=== PATIENT | female | born 1950 | race Caucasian/White ===

== ENCOUNTER → 2017-07-31 | Outpatient (CLI) | payer MEDICARE, BC ==
[2017-07-31 11:18] LABS: ABG BASE EXCESS 10.1 MMOL/L (-2.5-2.5); ABG HCO3 35 MMOL/L (23-27); ABG OXYGEN SATURATION 100 % (94-100); ABG PCO2 57 MMHG (35-45); ABG PO2 138 MMHG (79-93); ABG TCO2 36.9 MMOL/L (21.0-31.0)
[2017-07-31 11:33] LABS: ALLENS TEST YES-POS
[2017-07-31 11:34] LABS: PATIENT TEMP 98.7
--- NOTE | 2017-07-31 13:13 | Diagnostic Imaging Report ---
INDICATION: Idiopathic pulmonary fibrosis. COMPARISON: 12/07/2015 FINDINGS: Two views of the chest are obtained. Heart size is normal. Pulmonary vessels appear unremarkable. Fairly severe diffuse reticulonodular interstitial fibrotic changes are again demonstrated similar to the prior study. There is increased density now seen in the right upper lobe which may represent some superimposed infiltrate. The osseous structures appear unremarkable. No pleural fluid is seen. IMPRESSION: Chronic-appearing fibrotic changes are again demonstrated. There is increasing density in the right upper lobe concerning for superimposed infiltrate. Short-term followup study is recommended. Dictated by: Dictated on workstation # [id number]
== END ==
LOC: RAD 10:11
PROVIDERS: ATTEND Nurse Practitioner Family
DX: J84.112 Idiopathic pulmonary fibrosis (principal)
CPT/HCPCS: 71020; 82805